=== PATIENT | male | born 1980 | race Caucasian/White ===

== ENCOUNTER 2022-07-16 15:00 | Inpatient (IN) | payer BC ==
[2022-07-16 16:56] VITALS: BMI 27.6
[2022-07-16] MEDS ORDERED: Acetaminophen 325 MG TAB PO PRN (17:20)
[2022-07-16] MEDS ORDERED: Bisacodyl 5 MG TAB PO PRN (17:20)
[2022-07-16] MEDS ORDERED: Ondansetron ODT 4 MG TAB PO PRN (17:20)
[2022-07-16] MEDS ORDERED: Senokot S 8.6-50 MG TAB PO PRN (17:20)
[2022-07-16] MEDS ORDERED: Bisacodyl 10 MG SUPP PR PRN (17:20)
[2022-07-16] MEDS ORDERED: Acetaminophen 500 MG TAB PO PRN (17:28)
[2022-07-16 18:12] LABS: CRP (Inflammatory) 0.77 mg/dL (= or < 0.5)
[2022-07-16 18:38] LABS: HIV (1/2) Antibody/Antigen Non-Reactive (NonReactive); HIV 1/2 INDEX 0.08 S/CO (<1.00)
[2022-07-16] MEDS ORDERED: SUMAtriptan Succinate 6 MG/0.5 ML VIAL SC SCH (20:00)
[2022-07-16] MEDS ORDERED: Naproxen 500 MG TAB PO SCH (20:00)
[2022-07-16 20:10] LABS: Syphilis Antibody Nonreactive (Nonreactive); Syphilis Antibody Index 0.05 S/CO (<1.00 Non-Reactive)
[2022-07-16] MEDS: Famotidine 20 MG TAB PO SCH ×2 (20:14→20:18)
[2022-07-16] MEDS: Cepastat Lozenges 1 LOZ PO PRN (23:05)
[2022-07-17 00:17] LABS: Amphetamine Not Detected (NotDetected); Barbiturates Screen Not Detected (NotDetected); Benzodiazepine Screen Not Detected (NotDetected); Cocaine Metabolite Screen Not Detected (NotDetected); Methadone Not Detected (NotDetected); Methamphetamine Not Detected (NotDetected); Opiate Screen Not Detected (NotDetected); Oxycodone Screen Not Detected (NotDetected); Phencyclidine (PCP) Not Detected (NotDetected); THC/Cannabinoid Screen Not Detected (NotDetected); Tricyclic Screen Not Detected (NotDetected)
[2022-07-17 05:19] LABS: Hemoglobin 13.9 g/dL (13.5-17.5); MDiff Complete? YES; Mean Corpuscular HGB CONC 32.9 g/dL (32.0-36.0); Mean Corpuscular Hemoglobin 28.1 pg (27.0-33.0); Mean Corpuscular Volume 85.4 fl (81.2-95.1); Mean Platelet Volume 9.5 fl (7.4-10.4); Platelet Count 263 10x3/uL (150-450); RBC Distribution Width 13.2 % (11.5-14.5); Red Blood Cell (RBC) Count 4.94 10x6/uL (4.32-5.72); White Blood Cell (WBC) Count 5.2 10x3/uL (3.5-10.5)
[2022-07-17 05:26] LABS: Anion Gap 13 mmol/L (10-20); BUN (Urea Nitrogen) 11 mg/dL (8.9-20.6); Calc. Creatinine Clearance 122 mL/min (70-130); Calcium 9.2 mg/dL (7.8-10.44); Carbon Dioxide 26 mmol/L (22-29); Chloride 108 mmol/L (98-107); Estimated GFR 95; Glucose 104 mg/dL (70-105); Sodium 143 mmol/L (136-145)
[2022-07-17] MEDS: Cepastat Lozenges 1 LOZ PO PRN (06:47)
[2022-07-17 07:05] LABS: Band 3 % (5-11); Eosinophils 2 % (0-10); Lymphocytes 39 % (21-51); Monocytes 22 % (0-10); Neutrophil 33 % (42-75); Reactive Lymphocytes 1 % (0-10)
[2022-07-17 07:08] LABS: Microcytosis SLIGHT = 6-15 cells (100X) (0-5/hpf); Ovalocytes SLIGHT = 2-5 cells (100X) (0-1/hpf); Platelet Clumps SLIGHT; Schistocytes SLIGHT = 2-5 cells (100X) (0-1/hpf)
[2022-07-17 07:09] LABS: Platelet Morphology Comment Appears Adequate
[2022-07-17] MEDS: Famotidine 20 MG TAB PO SCH ×2 (09:16→20:36)
[2022-07-17] MEDS: Ketoconazole 2% Cream 15 gm Tube TOP SCH (10:30)
[2022-07-17] MEDS ORDERED: Magnevist 469MG/ML 20 ML VIAL ONE (10:37)
[2022-07-17 13:16] LABS: Hemoglobin A1c 5.5 % (4.0-6.0)
[2022-07-18 04:32] LABS: #Eosinphils 0.3 10x3/uL (0.0-0.5); #Monocytes 0.6 10x3/uL (0.0-1.1); #Neutrophils 2.3 10x3/uL (1.5-8.4); %Basophils 0.5 % (0.0-2.0); %Eosinophils 4.8 % (0.0-6.0); %Lymphocytes 43.5 % (18.0-47.0); %Monocytes 10.7 % (0.0-10.0); %Neutrophils 40.3 % (40.0-75.0); Hemoglobin 14.4 g/dL (13.5-17.5); Mean Corpuscular HGB CONC 33.5 g/dL (32.0-36.0); Mean Corpuscular Hemoglobin 28.3 pg (27.0-33.0); Mean Corpuscular Volume 84.5 fl (81.2-95.1); Mean Platelet Volume 9.2 fl (7.4-10.4); Platelet Count 254 10x3/uL (150-450); RBC Distribution Width 13.2 % (11.5-14.5); Red Blood Cell (RBC) Count 5.09 10x6/uL (4.32-5.72); White Blood Cell (WBC) Count 5.6 10x3/uL (3.5-10.5)
[2022-07-18 04:41] LABS: Anion Gap 12 mmol/L (10-20); BUN (Urea Nitrogen) 13 mg/dL (8.9-20.6); Calc. Creatinine Clearance 119 mL/min (70-130); Carbon Dioxide 27 mmol/L (22-29); Chloride 106 mmol/L (98-107); Estimated GFR 92; Glucose 102 mg/dL (70-105); Potassium 4.1 mmol/L (3.5-5.1); Sodium 141 mmol/L (136-145)
[2022-07-18] MEDS: Famotidine 20 MG TAB PO SCH (08:13)
[2022-07-18] MEDS: Ketoconazole 2% Cream 15 gm Tube TOP SCH (12:17)
[2022-07-18 13:26] VITALS: BP 140/91; TEMP 97.9
[2022-07-20 13:59] LABS: ANA Symphony (Qualitative) Negative (Negative); ANA Symphony (Quantitative) 0.2 Ratio (< 0.7 Negative)
== END 2022-07-18 13:45 | disposition home or self-care (01) | DRG 103 ==
LOC: CSHTELE 15:00 → OBSVTOIN 07-17 15:25
PROVIDERS: ADMIT Hospitalist; ATTEND Hospitalist
DX: G43.409 Hemiplegic migraine, not intractable, without status migrainosus (principal); R53.1 Weakness; Z20.822 Contact with and (suspected) exposure to COVID-19; K21.9 Gastro-esophageal reflux disease without esophagitis; R27.0 Ataxia, unspecified; R32 Unspecified urinary incontinence; G62.9 Polyneuropathy, unspecified; L98.9 Disorder of the skin and subcutaneous tissue, unspecified
CPT/HCPCS: 36415; 70551; 70552; 72141; 72146; 72148; 80048; 80306; 82533; 82550; 83036; 83519; 83735; 84443; 85025; 86038; 86140; 86225; 86780; 87389; 96372; A9579; G0378; J1650; J3030; U0003; U0005